=== PATIENT | female | born 1975 | race Caucasian/White ===

== ENCOUNTER 2018-10-12 00:27 | Day surgery (SDC) | payer BC, OTHER ==
[~2018-10-12] VITALS: Ht 170.2 cm; Wt 89.4 kg
[~2018-10-12 00:27] MED LIST: IBU800 PO; LISI-353 PO; LISI-355 PO; METF-450 PO; METR500T15 PO; NORE0.352 PO; PER PO
[2018-10-12] MEDS ORDERED: LIDOCAINE MPF 1% 5 ML VIAL ONE (07:31)
[2018-10-12] MEDS ORDERED: PROPOFOL EMUL(*) 10MG/ML 20 ML 60 ML ONE (07:31)
[2018-10-12] MEDS ORDERED: NORMOSOL R SOLN(*) 1000 ML BAG 1,000 ML IV PRN (08:00)
[2018-10-12] MEDS ORDERED: LIDOCAINE/SOD BICARB 8.4% SYR ID ONE (08:00)
[2018-10-12 08:17] VITALS: BP 134/90
[2018-10-12] MEDS ORDERED: GLYCOPYRROLATE 0.2MG/ML 1 ML INJ IVP ONE (08:25)
[2018-10-12] MEDS ORDERED: KETAMINE HCL-NS 50 MG/5 ML SYR ONE (09:04)
[2018-10-12] MEDS ORDERED: PROPOFOL EMUL(*) 10MG/ML 20 ML 20 ML ONE (09:24)
[2018-10-12 09:45] VITALS: BP 128/90
[2018-10-12 10:00] VITALS: BP 119/86
[2018-10-12 10:30] VITALS: BP 117/79
[2018-10-12 11:13] VITALS: BP 132/80
[2018-10-12 11:15] VITALS: BP 127/84
--- NOTE | 2018-10-12 15:50 | NUR ---
0945- PT. RECEIVED FROM OR VIA STRETCHER WITH THE SIDERAILS UP. SBAR RECEIVED FROM DR. LION. SEE ADMISSION ASSESSMENT. PT. RESTING ON LEFT SIDE. 1004- PT. RETURNED TO ROOM AIR. 1006- PT. GIVEN WATER. 1010- PT. GIVEN PUDDING. 1030- PT. GIVEN MORE WATER. 1040- PT. GIVEN MORE WATER. 1113- PT. STATES THAT SHE IS READY TO GO HOME SO ORTHOSTATICS PREFORMED. 1116- PT. GETTING DRESSED. 1120- DISCHARGE INSTRUCTIONS GONE OVER WITH PT. AND FAMILY. 1125- IV TAKEN OUT AND PRESSURE DRESSING APPLIED. 1126- PT. TO THE BATHROOM. 1130- ACCOMPANIED PT. OUT AMBULATORY WITH [facility] AND ELI STUART.
== END 2018-10-12 11:30 | disposition home or self-care (01) ==
LOC: OR 00:27
PROVIDERS: ATTEND Internal Medicine Gastroenterology
DX: K64.8 Other hemorrhoids (principal); K29.70 Gastritis, unspecified, without bleeding; K44.9 Diaphragmatic hernia without obstruction or gangrene; K20.9 Esophagitis, unspecified
CPT/HCPCS: 00813; 36416; 43239; 45380; 82948; 88305; 88313; 88344; J2001; J2704; J3490

== ENCOUNTER → 2018-11-02 | Outpatient (CLI) | payer OTHER | LOC: LAB 15:00 | PROVIDERS: ATTEND Family Medicine | DX: R19.7 Diarrhea, unspecified (principal) | CPT/HCPCS: 87324; 87449 ==

== ENCOUNTER → 2018-11-16 | Outpatient (CLI) | payer OTHER | LOC: LAB 13:16 | PROVIDERS: ATTEND Family Medicine | DX: R19.7 Diarrhea, unspecified (principal) | CPT/HCPCS: 83630; 87324; 87449 ==